=== PATIENT | male | born 1995 | race Two or more races ===

== ENCOUNTER 2021-04-27 17:45 | Emergency (ER) | payer OTHER, SELFPAY ==
--- NOTE | ~2021-04-27 | XR_ITS ---
EXAMINATION: XR FOOT, LEFT CLINICAL INFORMATION: Left fourth toe pain with question of osteomyelitis. COMPARISON: None TECHNIQUE: AP, lateral, and oblique views of the left foot. FINDINGS: The bones and soft tissues are normal. No fracture. Alignment is anatomic. Joint spaces are maintained. XR/XR foot LT 2V IMPRESSION: Normal left foot.
[2021-04-27 20:12] VITALS: BP 126/79; PULSE 89; RESP 16; TEMP 37; O2SAT 100; BMI 23.3
--- NOTE | 2021-04-27 22:42 | ED_ITS ---
HPI - General Adult General Chief complaint: Skin/Abscess/Foreign Body Stated complaint: toe infection Time Seen by Provider: 04/27/21 22:27 Source: patient Mode of arrival: ambulatory Limitations: no limitations History of Present Illness HPI narrative: Patient presents to ED for redness and swelling on left toe st atus post toenail removal by his podatrists due to fungus. Related Data Previous Rx's Medication Instructions Recorded cephalexin 500 mg capsule 500 mg PO QID #28 cap 04/27/21 Allergies Allergy/AdvReac Type Severity Reaction Status Date / Time lithium [LITHIUM] Allergy Unknown UNKNOWN Unverified 05/02/20 18:48 perphenazine [From TRILAFON] Allergy Unknown UNKNOWN Unverified 05/02/20 18:48 ziprasidone [From GEODON] Allergy Unknown UNKNOWN Unverified 05/02/20 18:48 Review of Systems Review of Systems: Yes all other systems are reviewed and are negative Constitutional: Constitutional: Reports as per HPI and Reports no additional constitutional complaints Eyes: Eyes: Reports as per HPI and Reports no additional eye complaints ENT: Reports system reviewed and no additional complaints, except as documented and Reports as per HPI Cardiovascular: Cardiovascular: Reports as per HPI and Reports no additional cardiovascular complaints Respiratory: Respiratory: Reports as per HPI and Reports no additional respiratory complaints Musculoskeletal: Musculoskeletal: Reports no additional musculoskeletal complaints and Reports as per HPI Comments: Fourth toe pain and redness Neurologic: Reports system reviewed and no additional complaints, except as documented and Reports as per HPI Psychiatric: Psychiatric: Reports no additional psychiatric complaints and Reports as per HPI [facility] Social History Social History Advance Directives: No Advance Directives Information Provided: Yes Physical Exam Vital Signs: Vital Signs: Last Vital Signs Temp 98.6 F 04/27/21 20:12 Pulse 89 04/27/21 20:12 Resp 16 04/27/21 20:12 BP 126/79 04/27/21 20:12 Pulse Ox 100 04/27/21 20:12 Body Mass Index 23.3 Const: General: cooperative, healthy appearing, comfortable, no acute distress, well developed, alert and awake Orientation/consciousness: patient oriented x3 HENMT: Head: Yes normal to inspection, Yes No palpable skull fracture present, Yes normocephalic and Yes atraumatic Eyes: General: appearance normal, both eyes and all related structures Neck: Neck: Yes normal visual inspection, Yes full ROM, Yes no lymphadenopathy, Yes no meningeal signs, Yes trachea midline, Yes supple and No tender Chest: Chest palpation & inspection: normal inspection of the chest and normal palpation of entire chest wall Resp: Effort & Inspection: normal respiratory effort and able to speak in complete sentences Auscultation: clear to auscultation bilaterally Cardio: Jugular venous distension: no JVD Heart sounds: S1 normal heart sound present and S2 normal heart sound present GI: Inspection: Yes normal to inspection and No abdominal wall ecchymosis Palpation (GI): Soft to palpation, not firm, nontender, no guarding and not rigid : General: No CVA tenderness and Yes no CVA tenderness Back/Spine/Pelvis: Back: no CVA tenderness, No CVA tenderness and No back tenderness Skin: General skin exam: no rashes or lesions noted and elasticity normal Neuro: General: patient oriented x3, no meningeal signs and CN's II-XI intact bilaterally Cranial nerves: Yes CN's II-XII intact bilaterally Extrem: Ankle/foot/toe images: 1. mild swelling with significant redness. Negative for any pus drainage or foul odor. Pedal pulses intact. Vascular/motor/neuro exam intact Psych: Appearance: grossly normal, well kempt and not disheveled Course Course Course Narrative: Patient of x-ray to rule out osteo. With the patient have wound infection. Reevaluation(s) Reevaluation #1: x-ray negative for osteomyelitis or fracture. Most likely wound infection. Mother and patient informed to follow-up with skiving machine operator who performed procedure. Medical Decision Making MDM Narrative Medical decision making narrative: Wound infection Discharge Plan Discharge Clinical Impression: Cellulitis, Postprocedural wound infection Patient Disposition: Home, Self-Care Instructions: Wound Infection (ED), Cellulitis (ED) Additional Instructions: x-ray came back negative for bone infection or fracture. Please follow-up with your skiving machine operator who performed the procedure. You will be discharged with antibiotics. Return to the ED for worsening swelling, redness, fever, chills, pus discharge, worsening redness, or any other concerning symptoms. Prescriptions: New cephalexin 500 mg capsule 500 mg PO QID Qty: 28 RF: 0 Interventions: ED Discharge Assessment Last Done: 04/28/21 00:27 Discharge Date/Time: 04/28/21 00:30 Print Language: Greek
== END 2021-04-28 00:30 | disposition home or self-care (01) ==
PROVIDERS: Emergency Provider Student in an Organized Health Care Education/Training Program
DX: L03.032 Cellulitis of left toe (principal); Z79.899 Other long term (current) drug therapy
CPT/HCPCS: 73620; 99283

== ENCOUNTER 2023-11-14 10:29 | Emergency (ER) | payer OTHER, SELFPAY ==
[2023-11-14 10:33] VITALS: BP 122/99; PULSE 90; RESP 18; TEMP 36.7; O2SAT 99; BMI 30.2
[2023-11-14 10:46] LABS: MANUAL DIFF FLAG NO
[2023-11-14 10:50] LABS: Basophils Absolute Auto 0.1 X10*3/uL (0.0-0.2); Basophils Percent Auto 0.7 % (0-2); Eosinophils Absolute Auto 0.1 X10*3/uL (0.0-0.4); Eosinophils Percent Auto 0.8 % (0-4); Hematocrit 52.5 % (42.0-52.0); Hemoglobin 18.7 g/dl (14.0-18.0); Imm Gran Abs Auto 0.02 X10*3/uL (0.00-0.03); Imm Gran Pct Auto 0.3 % (0.0-0.4); Lymphocytes Absolute Auto 1.6 X10*3/uL (1.2-4.9); Lymphocytes Percent Auto 21.9 % (20-40); Mean Corpuscular HGB Conc 35.6 g/dl (31.0-36.0); Mean Corpuscular Hemoglobin 29.8 pg (27.0-33.0); Mean Corpuscular Volume 83.6 fL (80.0-98.0); Monocytes Absolute Auto 0.5 X10*3/uL (0.1-1.2); Monocytes Percent Auto 7.3 % (2-11); Neutrophils Absolute Auto 5.1 x10*3/uL (2.0-8.3); Platelet Count 267 X10*3/uL (160-400); Red Blood Count 6.28 X10*6/uL (4.60-5.80); White Blood Count 7.4 X10*3/uL (4.8-10.8)
--- NOTE | 2023-11-14 11:24 | ED.NAVMDI ---
HPI - Nausea/Vomiting/Diarrhea General Chief complaint: Nausea/Vomiting/Diarrhea Stated complaint: Vomiting Time Seen by Provider: 11/14/23 10:43 Source: patient and family (mom) Mode of arrival: ambulatory History of Present Illness HPI Narrative: Sebastian is a 27 year old male presenting today for evaluation of nausea, vomiting and diarrhea for 1 day. He is accompanied by his mother, who is his legal guardian. Per mom, he spends weekdays at a correction and weekends at home with mom. Mom denies any sick contacts, unknown at correction. Abdominal pain is epigastric and is exacerbated by vomiting. Decreased appetite and reports that vomiting is bilious. Unknown if febrile episodes at home. Reports dizziness and feeling faint with vomiting episodes but denies syncope or near syncope. MD elicited complaint: nausea, vomiting and diarrhea Onset (ago): day(s) (1) Description of vomiting: bilious Description of diarrhea: watery Associated nausea: Yes Associated abdominal pain: Yes Radiation: does not radiate Pain consistency: intermittent Severity: moderate Pain scale (0-10): 8 Quality: cramping Exacerbating factors: vomiting Relieving factors: rest Related Data Previous Rx's Medication Instructions Recorded cephalexin 500 mg capsule 500 mg PO QID #28 caps 04/27/21 ondansetron 4 mg disintegrating 4 mg PO Q8H PRN nausea and 11/14/23 tablet vomiting #7 tabs Allergies Allergy/AdvReac Type Severity Reaction Status Date / Time lithium [LITHIUM] Allergy Unknown UNKNOWN Verified 11/14/23 10:33 perphenazine [From TRILAFON] Allergy Unknown UNKNOWN Verified 11/14/23 10:33 ziprasidone [From GEODON] Allergy Unknown UNKNOWN Verified 11/14/23 10:33 Review of Systems Review of Systems: Yes all other systems are reviewed and are negative Gastrointestinal: Gastrointestinal: Reports nausea PMFSH Social History Social History Advance Directives: No Advance Directives Information Provided: No Physical Exam Vital Signs: Vital Signs: Last Vital Signs Temp 98.0 F 11/14/23 12:17 Pulse 91 11/14/23 12:17 Resp 18 11/14/23 12:17 BP 131/86 11/14/23 12:17 Pulse Ox 97 11/14/23 12:17 O2 Del Method Room Air 11/14/23 12:17 BMI result Body Mass Index 30.2 Appearance: Alert. Oriented X3. Uncomfortable, nausea and holding emesis bag. Head: normocephalic, atraumatic. ENT: Pharynx normal. No tonsillar swelling or exudate. White coating on tongue. Neck: Normal inspection. Neck supple. CVS: Normal heart rate and rhythm. Pulses normal. Respiratory: No respiratory distress. Breath sounds normal. Abdomen: Soft and nondistended. +BS x4. Reports tenderness to palpation of epigastric region. Skin: Skin warm and dry. Normal skin color. Normal skin turgor. No rashes. Extremities: No lower extremity edema. No joint swelling. Neuro/psych: Oriented X 3. No motor deficit. No sensory deficit. Normal speech and cognition. Course Reevaluation(s) Reevaluation #1: Sebastian is feeling better after starting IV LR and zofran. He still has some abdominal pain but is not as nausea. Much more cheery and talkative. Time: 12:33 Reevaluation #2: tolerating PO. feeling better. likely viral illness. stable for d/c home w/ supportive care Time: 13:04 Reevaluation #3: as patient was completing 2 L of LR, called to the room for recurrent epigastric pain. Patient tearful. His abdomen is soft with epigastric tenderness. Lipase added to previous lab work. GI cocktail and Toradol ordered. Will continue to monitor. Time: 14:46 Additional Reevaluation(s): 15:51 - patient feeling much better. He would like to go home. Return precautions were discussed. Patient is stable for discharge. Medications Administered Discontinued Medications Generic Name Dose Route Start Last Admin Trade Name Freq PRN Reason Stop Dose Admin Al Hydroxide/Mg Hydroxide 30 ml 11/14/23 14:43 11/14/23 14:52 Magnesium Hydrox/Alum Hydrox 30 Ml Oral.Susp PO 11/14/23 14:44 30 ml ONCE ONE Administration Belladonna Alkaloids/Phenobarbital 10 ml 11/14/23 14:43 11/14/23 14:52 Phenobarb/Hyoscy/Atropine/Scop 10 Ml Elixir PO 11/14/23 14:44 10 ml ONCE ONE Administration Lactated Ringer's 1,000 mls @ 999 mls/hr 11/14/23 10:45 11/14/23 13:45 Lr IV 11/14/23 11:45 Infused .Q1H1M ERMA Infusion Lactated Ringer's 1,000 mls @ 999 mls/hr 11/14/23 11:00 11/14/23 15:42 Lr IV 11/14/23 12:00 Infused .Q1H1M ERMA Infusion Ketorolac Tromethamine 15 mg 11/14/23 14:43 11/14/23 14:52 Ketorolac Tromethamine 15 Mg/Ml Vial IVPUSH 11/14/23 14:44 15 mg ONCE ONE Administration Lidocaine HCl 15 ml 11/14/23 14:43 11/14/23 14:51 Lidocaine Hcl Viscous 2 % 15 Ml Solution MUCOUS MEM 11/14/23 14:44 15 ml ONCE ONE Administration Ondansetron HCl 4 mg 11/14/23 10:43 11/14/23 12:03 Ondansetron Hcl 4 Mg/2 Ml Vial IVPUSH 11/14/23 10:44 4 mg ONCE ONE Administration Ondansetron HCl 4 mg 11/14/23 13:09 11/14/23 13:55 Ondansetron Hcl 4 Mg/2 Ml Vial IVPUSH 11/14/23 13:10 4 mg ONCE ONE Administration Procedures EJ/Peripheral Line Arm R: Time Out Performed: No Skin Cleansed in Sterile Fashion: Yes Size (gauge): 18 IV Secured and Dressing Applied: Yes Patient Tolerated Procedure: well and no complications Medical Decision Making Medical Decision Making MDM Narrative: Sebastian is a 27 year old male with no known medical issues who reports today for nausea/vomiting/diarrhea for 1 day. He is accompanied by his mother who is his legal guardian. Patient reports acute onset of N/V/D yesterday with no known sick contacts. Pain is epigastric and cramping in nature, worsens with vomiting. On physical exam, he is visibly uncomfortable, holding emesis bag and between bouts of vomiting. No tenderness at McBurney's point. Will administer IV fluids (x2 liters) and antiemetics and monitor for improvement. Low suspicion for appendicitis and pancreatitis considering location of pain, epigastric, non radiating, and non-acute abdomen. Will trial PO with jeremias richard and crackers. Tolerated well, reports that nausea is returning, will administer additional zofran 4mg. Labs are reassuring, increased RBC and H&H most likely due to hemoconcentration secondary to vomiting and viral gastroenteritis. If abdominal pain continues to worsen after administration of GI cocktail, will order CT abdomen and pelvis to further evaluation. After GI cocktail, patient feels much better. He would like to go home. He is stable for discharge with strict return precautions. Mom at the bedside and agreement with plan. All questions were answered Differential Diagnosis Differential Diagnoses: The differential diagnosis associated with the presentation includes viral gastroenteritis, COVID, influenza, appendicitis, pancreatitis, cholecystitis, food poisoning Admission/Observation Consideration of admission/observation: Escalation of care including admission/observation considered Lab Data MDM Lab Attestation statement: I reviewed the patient's lab results. Labs are reassuring, hemoconcentration most likely due to infectious etiology due to viral gastroenteritis. 11/14/23 10:42 11/14/23 10:42 Labs: Lab Results 11/14/23 Range/Units 10:42 WBC 7.4 (4.8-10.8) X10*3/uL RBC 6.28 H (4.60-5.80) X10*6/uL Hgb 18.7 H (14.0-18.0) g/dl Hct 52.5 H (42.0-52.0) % MCV 83.6 (80.0-98.0) fL MCH 29.8 (27.0-33.0) pg MCHC 35.6 (31.0-36.0) g/dl RDW 13.0 (11.0-16.0) % Plt Count 267 (160-400) X10*3/uL MPV 10.0 (9.4-12.4) fL Immature Gran % (Auto) 0.3 (0.0-0.4) % Neut % (Auto) 69.0 (45-73) % Lymph % (Auto) 21.9 (20-40) % [place] % (Auto) 7.3 (2-11) % Eos % (Auto) 0.8 (0-4) % Baso % (Auto) 0.7 (0-2) % Lymph # (Auto) 1.6 (1.2-4.9) X10*3/uL [place] # (Auto) 0.5 (0.1-1.2) X10*3/uL Eos # (Auto) 0.1 (0.0-0.4) X10*3/uL Baso # (Auto) 0.1 (0.0-0.2) X10*3/uL Abs Immat Gran (auto) 0.02 (0.00-0.03) X10*3/uL Absolute Neuts (auto) 5.1 (2.0-8.3) x10*3/uL Absolute Nucleated RBC 0.000 (0.0-0.012) X10*3/uL Nucleated RBC % (auto) 0.0 (0.0-0.2) /100WBC Sodium 139 (135-145) mmol/L Potassium 4.3 (3.3-5.1) mmol/L Chloride 101 (96-108) mmol/L Carbon Dioxide 26 (22-29) mmol/L Anion Gap 16 (12-20) BUN 10 (9-16) mg/dL Creatinine 1.22 (0.5-1.4) mg/dL Estim Creat Clear Calc 90.3 Estimated GFR > 60 Random Glucose 152 H (60-115) mg/dL Calcium 10.6 H (8.4-10.2) mg/dL Total Bilirubin 0.8 (0.0-1.0) mg/dL AST 28 (5-37) U/L ALT 64 H (0-40) U/L Alkaline Phosphatase 114 (39-117) U/L Total Protein 8.6 H (6.5-8.0) g/dL Albumin 4.9 (3.5-5.0) g/dL Lipase 78 (8-78) U/L Independent Historian Clinical information obtained from an independent historian. History obtained from or confirmed by: Parent Tests considered The following testing was considered but not selected: considered CT abd however reassuring abd exam Prescription Management I considered prescription management with: Pain Medication and Antibiotic Critical Care Time Critical Care Time Critical Care Time: Yes Total Critical Care Time: 31 Attestation: I have personally provided critical care time exclusive of time spent on separately billable procedures. Time includes review of lab data, radiology results, bedside re-evaluation and monitoring for potential decompensation. Intervention performed as documented. Discharge Plan Discharge Clinical Impression: Gastroenteritis, Dehydration Patient Disposition: Home, Self-Care Instructions: Dehydration (ED), Gastroenteritis (DC) Additional Instructions: You lab workup today did not show any significant abnormalities. You most likely have a viral GI bug also known as gastroenteritis. Treatment is supportive care, symptoms usually resolve on their own in 48-72 hours. Recommend rest and plenty of oral hydration. Stick to a bland diet like soup and toast while you are not feeling well. Take the prescribed medication as needed for nausea. Recommend over the counter Pepto Bismol or Imodium for upset stomach and diarrhea. Follow up with your doctor as needed. If you develop new or worsening symptoms call 911 or come back to the ER for further evaluation. Prescriptions: New ondansetron 4 mg tablet,disintegrating 4 mg PO Q8H PRN (Reason: nausea and vomiting) Qty: 7 0RF No Action cephalexin 500 mg capsule 500 mg PO QID Qty: 28 0RF
[2023-11-14] MEDS: ondansetron HCL 4 MG/2 ML VIAL IVPUSH ×2 (12:03→13:55)
[2023-11-14] MEDS: Lactated Ringers 1,000 ML 999 ML IV ×2 (12:03→13:46)
[2023-11-14 12:17] VITALS: BP 131/86; PULSE 91; RESP 18; TEMP 36.7; O2SAT 97
[2023-11-14 12:43] LABS: Alanine Aminotransferase 64 U/L (0-40); Albumin Level 4.9 g/dL (3.5-5.0); Alkaline Phosphatase 114 U/L (39-117); Anion Gap 16 (12-20); Aspartate Amino Transferase 28 U/L (5-37); Bilirubin Total 0.8 mg/dL (0.0-1.0); Blood Urea Nitrogen 10 mg/dL (9-16); Calcium 10.6 mg/dL (8.4-10.2); Carbon Dioxide 26 mmol/L (22-29); Chloride 101 mmol/L (96-108); Creatinine Clr Calc Pharmacy 90.3; Estimated Glomerular Filt Rate > 60; Glucose Random 152 mg/dL (60-115); Potassium 4.3 mmol/L (3.3-5.1); Sodium 139 mmol/L (135-145); Total Protein 8.6 g/dL (6.5-8.0)
--- NOTE | 2023-11-14 13:47 | PC.NURSE ---
patient IV infiltrated with LR, patient states he has no pain. patient IV removed and wrapped. new 20# IV placed in the right forearm, LR running
[2023-11-14] MEDS: Lidocaine HCl Viscous 2 % 15 ML SOLUTION MUCOUS MEM (14:51)
[2023-11-14] MEDS: Magnesium Hydrox/Alum Hydrox 30 ML ORAL.SUSP PO (14:52)
[2023-11-14] MEDS: Ketorolac Tromethamine 15 MG/ML VIAL IVPUSH (14:52)
[2023-11-14] MEDS: PHENobarb/Hyoscy/Atropine/Scop 10 ML ELIXIR PO (14:52)
[2023-11-14 15:14] LABS: Lipase 78 U/L (8-78)
[2023-11-14 16:03] VITALS: BP 135/80; PULSE 85; RESP 16; TEMP 36.9; O2SAT 99
== END 2023-11-14 16:25 | disposition home or self-care (01) ==
PROVIDERS: Physician Assistant; Emergency Provider Student in an Organized Health Care Education/Training Program
DX: K52.9 Noninfective gastroenteritis and colitis, unspecified (principal); E86.0 Dehydration
CPT/HCPCS: 36410; 36415; 80053; 83690; 85025; 96361; 96374; 96375; 96376; 99284; 99285; J1885; J2405; J7120

== ENCOUNTER 2024-04-15 14:34 | Emergency (ER) | payer OTHER, SELFPAY ==
--- NOTE | ~2024-04-15 | CT_ITS ---
EXAMINATION: CT HEAD WITHOUT CONTRAST CLINICAL INFORMATION: Head injury. Headache. Dizziness. Confusion. COMPARISON: None available. TECHNIQUE: Contiguous axial imaging was performed from the skull base to vertex without intravenous administration of contrast. This CT examination was performed using dose optimization techniques as appropriate, variously including the following: *Automated exposure control. *Adjustment of mA and/or kV according to patient size (this includes techniques or standardized protocols for targeted exams where dose is matched to indication/reason for exam; i.e. extremities or head). *Use of iterative reconstruction technique. DLP: 809 mGy-cm FINDINGS: There is no evidence of acute intracranial hemorrhage or edematous territorial infarction. Monson-white matter differentiation is preserved. There is no abnormal attenuation within the brain parenchyma. The ventricles are normal in morphology and size. No evidence for obstructive hydrocephalus. No abnormal mass effect or midline shift. No extra-axial fluid collections. Small subgaleal hematoma along the left parietal bone, measuring up to 0.3 cm in depth. No associated acute osseous abnormalities. Mild mucosal thickening of the paranasal sinuses. The mastoid air cells and middle ear cavities are clear. CT/CT head/brain wo IV con IMPRESSION: 1. No evidence of acute intracranial hemorrhage or edematous territorial infarction. 2. Small left parietal scalp hematoma. No associated osseous abnormalities. Electronically signed by: Lux Sepulveda DO 04/15/2024 03:46 PM EDT
[2024-04-15 14:58] VITALS: BP 118/78; PULSE 98; RESP 18; TEMP 36.5; O2SAT 97; BMI 31.9
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
[2024-04-15 16:18] VITALS: BP 113/75; PULSE 89; RESP 19; TEMP 36.6; O2SAT 98
[2024-04-15 16:50] VITALS: BP 113/75; PULSE 89; RESP 19; TEMP 36.6; O2SAT 98
== END 2024-04-15 16:51 | disposition home or self-care (01) ==
PROVIDERS: Emergency Provider Emergency Medicine; PCP Physician Assistant
DX: S06.0X0A Concussion without loss of consciousness, initial encounter (principal); S09.90XA Unspecified injury of head, initial encounter; Y04.0XXA Assault by unarmed brawl or fight, initial encounter; Y93.89 Activity, other specified; Y92.89 Other specified places as the place of occurrence of the external cause; Y99.9 Unspecified external cause status
CPT/HCPCS: 70450; 99282; 99284

== ENCOUNTER 2024-04-15 22:14 | Emergency (ER) | payer OTHER, SELFPAY ==
[2024-04-15 22:32] VITALS: BP 125/83; PULSE 99; RESP 16; TEMP 36.6; O2SAT 99; BMI 24.8
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
[2024-04-16] MEDS: Ondansetron ODT 4 MG TAB.RAPDIS TRANSLINGU (03:16)
--- NOTE | 2024-04-16 03:53 | PC.NURSE ---
nausea improved with zofran given per oct. pt tolerated po intake.
[2024-04-16 03:56] VITALS: BP 119/77; PULSE 79; RESP 16; TEMP 36.6; O2SAT 97
[2024-04-16 04:23] VITALS: BP 119/77; PULSE 79; RESP 16; TEMP 36.6; O2SAT 97
== END 2024-04-16 04:23 | disposition home or self-care (01) ==
PROVIDERS: Emergency Provider Internal Medicine; PCP Physician Assistant
DX: S09.90XA Unspecified injury of head, initial encounter (principal); R11.2 Nausea with vomiting, unspecified; R51.9 Headache, unspecified; W01.10XA Fall on same level from slipping, tripping and stumbling with subsequent striking against unspecified object, initial encounter; Y93.89 Activity, other specified; Y92.89 Other specified places as the place of occurrence of the external cause; Y99.8 Other external cause status
CPT/HCPCS: 99283; 99284

== ENCOUNTER 2024-10-01 21:29 | Emergency (ER) | payer OTHER, SELFPAY ==
[2024-10-01 21:34] VITALS: BP 126/85; PULSE 101; RESP 16; TEMP 36.8; O2SAT 98
[2024-10-01 22:05] LABS: Hematocrit 48.4 % (42.0-52.0); Hemoglobin 16.9 g/dl (14.0-18.0); Mean Corpuscular HGB Conc 34.9 g/dl (31.0-36.0); Mean Corpuscular Hemoglobin 29.9 pg (27.0-33.0); Mean Corpuscular Volume 85.5 fL (80.0-98.0); Mean Platelet Volume 9.7 fL (9.4-12.4); Platelet Count 206 X10*3/uL (160-400); Red Blood Count 5.66 X10*6/uL (4.60-5.80); Red Cell Distribution Width 12.4 % (11.0-16.0); White Blood Count 6.1 X10*3/uL (4.8-10.8)
[2024-10-01 22:19] LABS: Alanine Aminotransferase 32 U/L (0-40); Albumin Level 4.5 g/dL (3.5-5.0); Alkaline Phosphatase 87 U/L (39-117); Anion Gap 14 (12-20); Aspartate Amino Transferase 20 U/L (5-37); Bilirubin Total 0.5 mg/dL (0.0-1.0); Blood Urea Nitrogen 9 mg/dL (9-16); Calcium 9.9 mg/dL (8.4-10.2); Carbon Dioxide 25 mmol/L (22-29); Chloride 104 mmol/L (96-108); Creatinine Clr Calc Pharmacy 99.9; Estimated Glomerular Filt Rate > 60; Glucose Random 145 mg/dL (60-115); Potassium 4.1 mmol/L (3.3-5.1); Sodium 139 mmol/L (135-145)
[2024-10-01 22:21] LABS: IDNOW Serial# 58CA691E
[2024-10-01 22:22] LABS: COVID-19 Test Negative (Negative)
[2024-10-01 22:36] LABS: IDNOW Serial# 55D5AD1C; Influenza A Negative (Negative); Influenza B2 Negative (Negative)
--- NOTE | 2024-10-02 01:34 | ED.GENADULT ---
HPI - General Adult General Chief complaint: General Medical Stated complaint: risperdal side effects Time Seen by Provider: 10/02/24 01:35 Source: patient and family Mode of arrival: ambulatory Limitations: no limitations History of Present Illness ED Provider: HPI narrative: Patient is 28 years old with history of intellectual delay, schizophrenia used to be on Seroquel 500 mg a day which was stopped 4 days ago and started on Risperdal on 09/28/2024 since then patient is dizzy feeling hot and vomiting anxious having nightmares slow speed feel depressed multiple complaints no hallucination or delusion Related Data Previous Rx's ?Medication ?Instructions ?Recorded cephalexin 500 mg capsule 500 mg PO QID #28 caps 04/27/21 ondansetron 4 mg disintegrating 4 mg PO Q8H PRN nausea and 11/14/23 tablet vomiting #7 tabs ondansetron 4 mg disintegrating 4 mg PO DAILY PRN nausea and 04/15/24 tablet vomiting 5 days #10 tabs ondansetron 4 mg disintegrating 4 mg PO Q6-8H PRN nausea and 04/16/24 tablet vomiting #7 tabs Allergies Allergy/AdvReac Type Severity Reaction Status Date / Time lithium [LITHIUM] Allergy Unknown UNKNOWN Verified 10/01/24 21:40 perphenazine [From TRILAFON] Allergy Unknown UNKNOWN Verified 10/01/24 21:40 ziprasidone [From GEODON] Allergy Unknown UNKNOWN Verified 10/01/24 21:40 Review of Systems Review of Systems: Yes Unobtainable due to mental status [facility] Past Medical History Medical History (Updated 10/02/24 @ 06:17 by Jasiel Olivo MD) Schizophrenia Mentally challenged Social History Social History Advance Directives: No Advance Directives Information Provided: Yes Physical Exam ED Vital Signs: Vital Signs - 24 hr 10/01/24 21:34 10/02/24 03:18 10/02/24 05:58 Temperature 98.3 F 98.1 F 97.8 F Pulse Rate 101 H 86 86 Respiratory Rate 16 16 16 Blood Pressure 126/85 105/59 L 103/61 Pulse Oximetry 98 96 98 Oxygen Delivery Method Room Air Room Air Room Air BMI result Body Mass Index 30.0 Appearance: Alert. Oriented X2. No acute distress. Eyes: PERRLA, No Nystagmus ENT: Pharynx normal. Oral Mucosa moist Neck: Normal inspection. Neck supple. CVS: Normal heart rate and rhythm. Pulses normal. Respiratory: No respiratory distress. Equal air entry bilateral, no wheezing/rales/rhonchi Abdomen: Soft and nontender. Bowel sounds are present, no mass palpable, no CVA tenderness Skin: Skin warm and dry. Normal skin color. Normal skin turgor. Extremities: No lower extremity edema. No calf tenderness Neuro: Oriented X 2. No motor deficit. No sensory deficit.No cerebellar signs , cranial nerves II-XII intact patient is not communicating much Course Course Course Narrative: observation continued currelty asleep - will ask CARE team and psych to evaluate the patient JOCY 10/02/24 725am Medications Administered Discontinued Medications Generic Name Dose Route Start Last Admin Trade Name Freq PRN Reason Stop Dose Admin Lorazepam 2 mg 10/02/24 01:57 10/02/24 02:07 Lorazepam 1 Mg Tablet PO 10/02/24 01:58 2 mg ONCE ONE Administration Medical Decision Making Medical Decision Making [facility] Narrative: Patient's change in mental status likely from change in medications patient's used to be on Seroquel 500 mg for long time and all of a sudden they changed do Risperdal which she did not hit did not like it so far. Will get psych/care team consult about medication adjustment Lab Data [facility] Lab Attestation statement: I reviewed the patient's lab results. 10/01/24 22:00 10/01/24 22:00 Labs: Lab Results 10/01/24 Range/Units 22:00 WBC 6.1 (4.8-10.8) X10*3/uL RBC 5.66 (4.60-5.80) X10*6/uL Hgb 16.9 (14.0-18.0) g/dl Hct 48.4 (42.0-52.0) % MCV 85.5 (80.0-98.0) fL MCH 29.9 (27.0-33.0) pg MCHC 34.9 (31.0-36.0) g/dl RDW 12.4 (11.0-16.0) % Plt Count 206 (160-400) X10*3/uL MPV 9.7 (9.4-12.4) fL Absolute Nucleated RBC 0.000 (0.0-0.012) X10*3/uL Nucleated RBC % (auto) 0.0 (0.0-0.2) /100WBC Sodium 139 (135-145) mmol/L Potassium 4.1 (3.3-5.1) mmol/L Chloride 104 (96-108) mmol/L Carbon Dioxide 25 (22-29) mmol/L Anion Gap 14 (12-20) BUN 9 (9-16) mg/dL Creatinine 1.01 (0.5-1.4) mg/dL Estim Creat Clear Calc 99.9 Estimated GFR > 60 Random Glucose 145 H (60-115) mg/dL Calcium 9.9 D (8.4-10.2) mg/dL Total Bilirubin 0.5 (0.0-1.0) mg/dL AST 20 (5-37) U/L ALT 32 (0-40) U/L Alkaline Phosphatase 87 (39-117) U/L Total Protein 8.0 (6.5-8.0) g/dL Albumin 4.5 (3.5-5.0) g/dL COVID-19 (YARED) Negative (Negative) COVID-19 Clin Com See Note Influenza Type A (MARYSOL) Negative (Negative) Influenza Type B (MARYSOL) Negative (Negative) Influenza A & B Note See Note Independent Interpretation I performed an independent interpretation of an: CT Scan Radiology Impression Discussion of test interpretation with radiology: I have reviewed the radiologist's reading. Discharge Plan Discharge Clinical Impression: Schizophrenia, Delusional disorder Patient Disposition: Still a Patient Prescriptions: No Action cephalexin 500 mg capsule 500 mg PO QID Qty: 28 0RF ondansetron 4 mg tablet,disintegrating 4 mg PO Q8H PRN (Reason: nausea and vomiting) Qty: 7 0RF ondansetron 4 mg tablet,disintegrating 4 mg PO DAILY PRN (Reason: nausea and vomiting) 5 Days Qty: 10 0RF ondansetron 4 mg tablet,disintegrating 4 mg PO Q6-8H PRN (Reason: nausea and vomiting) Qty: 7 0RF Print Language: Trinidadian
[2024-10-02] MEDS: LORazepam 1 MG TABLET 2 MG PO (02:07)
[2024-10-02 03:18] VITALS: BP 105/59; PULSE 86; RESP 16; TEMP 36.7; O2SAT 96
[2024-10-02 05:58] VITALS: BP 103/61; PULSE 86; RESP 16; TEMP 36.6; O2SAT 98
--- NOTE | 2024-10-02 06:18 | ECG_ITS ---
Test Reason : MED VERIFICATION Blood Pressure : */* mmHG Vent. Rate : 85 BPM Atrial Rate : 85 BPM P-R Int : 136 ms QRS Dur : 90 ms QT Int : 358 ms P-R-T Axes : 25 55 44 degrees QTcB Int : 426 ms Normal sinus rhythm Early repolarization Normal ECG No previous ECGs available Referred By: Jasiel Olivo Electronically Signed By: TOMER DURÁN
--- NOTE | 2024-10-02 06:18 | PC.NURSE ---
This RN assumed pt care @ 0330. Plan of care ongoing
--- NOTE | 2024-10-02 09:54 | PC.NURSE ---
Assumed care of patient at 0950, patient appears to be in no apparent distress, flat affect, reporting that he is having a negative reaction to his Risperidal. Pending CARE mónicaal
--- NOTE | 2024-10-02 10:02 | MHC.EDTECH ---
Patient unable to provide urine sample at this time. RN aware
--- NOTE | 2024-10-02 10:58 | P.CNPS_ITS ---
History of Present Illness Date of Service: 10/02/2024 Chief Complaint: risperdal side effects Reason for Consult: Problems with recent medication change Requesting physician: Isabella Mcgrath Discussed with referring provider: Yes Sources of Information: patient interviewed and chart reviewed Additional Sources of Information: Patient's mother HPI Past Psychiatric History: Sebastian is a [age]-year-old male with developmental disorder/mild who resides in a residential program. He has been treated for many years for delusional disorder with paranoid tendencies and romantic size fantasies about others. At his day program there are some new staff which has interested him and he has also been more irritable and reactive. The staff felt because of this change in medication change was reasonable. He had been on Seroquel 100 mg in the afternoon and 400 mg at night and some PRNs. Metoprolol 25 mg daily, Adderall XR 30 mg daily. On Wednesday he was switched to 6 mg of Risperdal and Seroquel was stopped. Since then he has been sedated, tired, feeling ?depressed and vomiting. No history of substance abuse. No history of physical aggression though he has verbal aggression. Medical Evaluation Reviewed: Yes Personal & Social History: Sebastian is 1 of 3 siblings. His father is not in the picture. He has been dealing with a developmental disorder since . She is quite involved with him and his care. Review of Systems Review of Systems Nausea, vomiting, drowsiness Yes Unobtainable due to mental status [facility] Medical History (Updated 10/02/24 @ 06:17 by Jasiel Olivo MD) Schizophrenia Mentally challenged Social History: One of 3 siblings who resides in a residential program for people with developmental disorders. He attends day program Substance History: None Trauma History: None known Diagnostics Vital Signs (24Hr): Vital Signs - 24 hr 10/01/24 21:34 10/02/24 03:18 10/02/24 05:58 Temperature 98.3 F 98.1 F 97.8 F Pulse Rate 101 H 86 86 Respiratory Rate 16 16 16 Blood Pressure 126/85 105/59 L 103/61 Pulse Oximetry 98 96 98 Oxygen Delivery Method Room Air Room Air Room Air BMI result Body Mass Index 30.0 Labs 10/01/24 22:00 10/01/24 22:00 Labs: Laboratory Results - last 48 hr 10/01/24 22:00 WBC 6.1 RBC 5.66 Hgb 16.9 Hct 48.4 MCV 85.5 MCH 29.9 MCHC 34.9 RDW 12.4 Plt Count 206 MPV 9.7 Absolute Nucleated RBC 0.000 Nucleated RBC % (auto) 0.0 Sodium 139 Potassium 4.1 Chloride 104 Carbon Dioxide 25 Anion Gap 14 BUN 9 Creatinine 1.01 Estim Creat Clear Calc 99.9 Estimated GFR > 60 Random Glucose 145 H Calcium 9.9 D Total Bilirubin 0.5 AST 20 ALT 32 Alkaline Phosphatase 87 Total Protein 8.0 Albumin 4.5 COVID-19 (YARED) Negative COVID-19 Clin Com See Note Influenza Type A (MARYSOL) Negative Influenza Type B (MARYSOL) Negative Influenza A & B Note See Note Mental Status Exam Mental Status Exam Narrative: I attempted to interview him but he is very drowsy but woke up briefly however he is not able to engage in an interview and and evaluation Medications Allergies Allergies Allergy/AdvReac Type Severity Reaction Status Date / Time lithium [LITHIUM] Allergy Unknown UNKNOWN Verified 10/01/24 21:40 perphenazine [From TRILAFON] Allergy Unknown UNKNOWN Verified 10/01/24 21:40 ziprasidone [From GEODON] Allergy Unknown UNKNOWN Verified 10/01/24 21:40 Assessment & Plan Assessment & Plan (1) Delusional disorder: Status: Acute Code(s): F22 - Delusional disorders Plan In conclusion I feel that he was switched very quickly to a high dose of Risperdal which he did not tolerate because it is a new medication to him. My suggestion is to stop the Risperdal, resume the Seroquel at the previous dose and his other medications once he is more alert and to Total time managing care of this patient today 40____ minutes.
[2024-10-02 12:08] VITALS: BP 94/56; PULSE 102; RESP 18; TEMP 36.7; O2SAT 97
[2024-10-02 13:41] VITALS: BP 126/90; PULSE 96; RESP 18; TEMP 36.7; O2SAT 97
== END 2024-10-02 13:43 | disposition home or self-care (01) ==
PROVIDERS: Emergency Provider Internal Medicine; PCP Family Medicine
DX: F25.9 Schizoaffective disorder, unspecified (principal); F22 Delusional disorders; R11.2 Nausea with vomiting, unspecified; Z79.899 Other long term (current) drug therapy; Z11.52 Encounter for screening for COVID-19
CPT/HCPCS: 80053; 85027; 87502; 87635; 93005; 99284

== ENCOUNTER → 2024-10-02 01:32 | Outpatient (BNV) | payer OTHER, SELFPAY | PROVIDERS: Emergency Provider Internal Medicine; PCP Family Medicine; Visit Provider Psychiatry & Neurology Psychiatry | DX: F22 Delusional disorders (principal) | CPT/HCPCS: 99282 ==

== ENCOUNTER → 2024-10-02 06:18 | Outpatient (BNV) | payer OTHER, SELFPAY | PROVIDERS: Emergency Provider Internal Medicine; PCP Family Medicine; Visit Provider Internal Medicine | DX: Z51.81 Encounter for therapeutic drug level monitoring (principal) | CPT/HCPCS: 93010 ==